=== PATIENT | female | born 1995 | race Caucasian/White ===

== ENCOUNTER → 2022-09-21 | Outpatient (REF) | payer OTHER ==
[2022-09-21 14:07] LABS: HEMATOCRIT 36.9 % (36.0-47.0); HEMOGLOBIN 12.2 g/dl (12.0-15.5); MEAN CORPUSCULAR HGB CONC 33.1 g/dl (32.0-36.5); MEAN CORPUSCULAR VOLUME 96.9 fl (80.0-96.0); PLATELET COUNT, AUTOMATED 268 10^3/uL (150-450); RED BLOOD COUNT 3.81 10^6/uL (4.00-5.40)
[2022-09-21 15:25] LABS: HIV 1&2 SCREEN CENTAUR NEGATIVE (NEGATIVE)
[2022-09-21 15:42] LABS: GC DNA AMPLIFICATION NEGATIVE (NEGATIVE)
== END ==
LOC: M PLALAB 12:59
PROVIDERS: ATTEND Specialist
DX: Z34.81 Encounter for supervision of other normal pregnancy, first trimester (principal)

== ENCOUNTER → 2022-11-22 | Outpatient (CLI) | payer OTHER ==
[2022-11-22 15:09] LABS: GC DNA AMPLIFICATION NEGATIVE (NEGATIVE)
== END ==
LOC: M RAD 08:39
PROVIDERS: ATTEND Specialist
DX: Z34.82 Encounter for supervision of other normal pregnancy, second trimester (principal); Z3A.19 19 weeks gestation of pregnancy
CPT/HCPCS: 76811; 87810; 87850; G0463

== ENCOUNTER → 2023-01-18 | Outpatient (CLI) | payer OTHER ==
[2023-01-18 14:22] LABS: HEMATOCRIT 32.9 % (36.0-47.0); HEMOGLOBIN 10.9 g/dl (12.0-15.5); MEAN CORPUSCULAR HEMOGLOBIN 32.1 pg (27.0-33.0); MEAN CORPUSCULAR HGB CONC 33.1 g/dl (32.0-36.5); MEAN CORPUSCULAR VOLUME 96.8 fl (80.0-96.0); PLATELET COUNT, AUTOMATED 256 10^3/uL (150-450); WHITE BLOOD COUNT 8.7 10^3/uL (4.0-10.0)
[2023-01-18 15:38] LABS: GC DNA AMPLIFICATION NEGATIVE (NEGATIVE)
== END ==
LOC: M PLALAB 10:00
PROVIDERS: ATTEND Specialist
DX: Z34.82 Encounter for supervision of other normal pregnancy, second trimester (principal)
CPT/HCPCS: 36415; 82950; 85027; 86850; 86900; 86901; 87810; 87850; G0463

== ENCOUNTER → 2023-03-22 | Outpatient (REF) | payer OTHER | LOC: M PLALAB 15:04 | PROVIDERS: ATTEND Obstetrics & Gynecology | DX: Z34.83 Encounter for supervision of other normal pregnancy, third trimester (principal) ==

== ENCOUNTER 2023-04-03 12:00 | Inpatient (IN) | payer OTHER ==
[~2023-04-03] VITALS: Ht 175.3 cm; Wt 84.1 kg
[2023-04-03] VITALS (25 sets, daily range): BP systolic 113–161; BP diastolic 58–105
[2023-04-03] MEDS ORDERED: COLA100C5 PO (12:32)
[2023-04-03] MEDS ORDERED: PRENTAB9 PO (12:32)
[2023-04-03] MEDS ORDERED: FAMO20TA PO (12:32)
[2023-04-03] MEDS ORDERED: ACET-897 PO (12:32)
[2023-04-03] MEDS ORDERED: HOME MED LIST COMPLETE! XX SCH (12:35)
[2023-04-03] MEDS ORDERED: LACTATED RINGER'S 1000 ML IV STA (15:49)
[2023-04-03] MEDS ORDERED: PENICILLIN G POTASSIUM 5 MU IV 5 MU in D5W MINI-BAG PLUS 100 ML IV STA (15:49)
[2023-04-03] MEDS ORDERED: OXYTOCIN DRIP 30 UNITS in IV 1 EA IV PRN (15:50)
[2023-04-03] MEDS ORDERED: CARBOPROST TROMETHAMINE 250 MCG/ML AMP IM PRN (15:50)
[2023-04-03] MEDS ORDERED: LIDOCAINE 1% MDV 20ML VIAL INFIL PRN (15:50)
[2023-04-03] MEDS ORDERED: TRANEXAMIC ACID INJection 1,000 MG in NS 100 ML IV PRN (15:50)
[2023-04-03] MEDS ORDERED: METHYLERGONOVINE MALEATE 0.2MG/ML 1ML VIAL IM PRN (15:50)
[2023-04-03 16:52] LABS: HEMATOCRIT 33.6 % (36.0-47.0); HEMOGLOBIN 11.6 g/dl (12.0-15.5); MEAN CORPUSCULAR HEMOGLOBIN 31.9 pg (27.0-33.0); MEAN CORPUSCULAR HGB CONC 34.5 g/dl (32.0-36.5); MEAN CORPUSCULAR VOLUME 92.3 fl (80.0-96.0); PLATELET COUNT, AUTOMATED 232 10^3/uL (150-450); RED BLOOD COUNT 3.64 10^6/uL (4.00-5.40)
[2023-04-03] MEDS ORDERED: LR 500 ML IV PRN (18:30)
[2023-04-03] MEDS ORDERED: ePHEDrine SULFATE 25 MG/5 ML(5MG/ML) SYRINGE IVP PRN (18:30)
[2023-04-03] MEDS ORDERED: EPIDURAL/PCA KEYS XX PRN (18:30)
[2023-04-03] MEDS ORDERED: diphenhydrAMINE 50MG/ML VIAL IV PRN (18:30)
[2023-04-03] MEDS ORDERED: ONDANSETRON 4MG 2ML VIAL IV PRN (18:30)
[2023-04-03] MEDS ORDERED: FENTANYL/ROPIVACAINE/NACL BAG 100 ML EPIDURAL SCH (18:30)
[2023-04-03] MEDS ORDERED: NALOXONE INJ 0.4MG/1ML VIAL IV PRN (18:30)
[2023-04-03] MEDS ORDERED: PEN G POT 3,000,000 UNIT/50 ML 3,000,000 UNIT in IV 1 EA IV SCH (20:00)
[2023-04-03] MEDS ORDERED: FAMOTIDINE 20 MG TAB PO ONE (22:00)
[2023-04-03 22:15] LABS: CREATININE,RANDOM URINE 32.3 MG/DL
[2023-04-03 22:18] LABS: TOTAL PROTEIN,RANDOM URINE < 6.0 MG/DL (0.0-14.0)
[2023-04-03 23:03] LABS: URIC ACID 4.7 MG/DL (3.1-7.8)
[2023-04-03 23:05] LABS: LDH LACTATE DEHYDROGENASE 131 U/L (120-246)
[2023-04-03 23:06] LABS: ALT/SGPT < 9 U/L (7.0-40); AST/SGOT < 8 U/L (<34); BILIRUBIN,TOTAL 0.3 MG/DL (0.3-1.2); CREATININE FOR GFR 0.49 MG/DL (0.55-1.30); GLOMERULAR FILTRATION RATE > 60.0 (>60)
[2023-04-04 00:14] VITALS: BP 133/85
[2023-04-04] MEDS ORDERED: DOCUSATE SODIUM 100MG CAPSULE PO PRN (00:25)
[2023-04-04] MEDS ORDERED: ACETAMINOPHEN 500 MG TAB PO PRN (00:25)
[2023-04-04] MEDS ORDERED: RHOGAM 300MCG (1500IU) INJ IM SCH (00:25)
[2023-04-04] MEDS ORDERED: IBUPROFEN 600MG TAB PO PRN (00:25)
[2023-04-04] MEDS ORDERED: DIBUCAINE 1% OINTMENT 30GM TOP PRN (00:25)
[2023-04-04] MEDS ORDERED: MOM 30ML SUSPENSION UDC PO PRN (00:25)
[2023-04-04] MEDS ORDERED: ANUSOL HC CREAM 30GM TOP PRN (00:25)
[2023-04-04 00:29] VITALS: BP 134/78
[2023-04-04 00:44] VITALS: BP 142/83
[2023-04-04] MEDS: IBUPROFEN 800 MG TAB PO PRN ×3 (02:04→18:34)
[2023-04-04 02:22] VITALS: BP 144/85
[2023-04-04] MEDS: ACETAMINOPHEN TAB 650MG DOSE (2X325MG) PO PRN ×4 (04:56→22:47)
[2023-04-04 06:00] VITALS: BP 126/85
[2023-04-04] MEDS: PRENATAL VITAMINS CHEWABLE TABLET PO SCH (09:12)
[2023-04-04 18:00] VITALS: BP 115/71
[2023-04-05 06:00] VITALS: BP 110/69
[2023-04-05] MEDS: PRENATAL VITAMINS CHEWABLE TABLET PO SCH (09:02)
[2023-04-05] MEDS: IBUPROFEN 800 MG TAB PO PRN (09:08)
[2023-04-06] MEDS ORDERED: MEASLES,MUMPS,RUBELLA VACCINE INJ (MMR-II) SC.IMMUN ONE (09:00)
== END 2023-04-05 11:48 | disposition home or self-care (01) | DRG 807 ==
LOC: M LDO 12:00 → M LDI 15:45 → M OBS 04-04 02:26
PROVIDERS: ADMIT Advanced Practice Midwife; ATTEND Advanced Practice Midwife
PROC: 10E0XZZ Delivery of Products of Conception, External Approach (ICD-10-PCS; principal; 2023-04-04)
PROC: 0HQ9XZZ Repair Perineum Skin, External Approach (ICD-10-PCS; 2023-04-04)
DX: O13.4 Gestational [pregnancy-induced] hypertension without significant proteinuria, complicating childbirth (principal); Z37.0 Single live birth; Z3A.37 37 weeks gestation of pregnancy; O99.824 Streptococcus B carrier state complicating childbirth; O70.0 First degree perineal laceration during delivery

== ENCOUNTER 2023-09-30 02:15 | Emergency (ER) | payer OTHER ==
[~2023-09-30] VITALS: Ht 175.3 cm; Wt 81.3 kg
[~2023-09-30 02:15] MED LIST: ACET-897 PO; COLA100C5 PO; FAMO20TA PO; PRENTAB9 PO
[2023-09-30 02:16] VITALS: BP 145/92; TEMP 97.8; O2SAT 52
== END 2023-09-30 03:41 | disposition left against medical advice (07) ==
LOC: M ED 02:15
DX: Z53.21 Procedure and treatment not carried out due to patient leaving prior to being seen by health care provider (principal)